=== PATIENT | female | born 1950 | race Caucasian/White ===

== ENCOUNTER 2021-09-14 11:03 | Emergency (ER) | payer OTHER ==
[2021-09-14 11:43] LABS: BASOPHIL 0.5 % (0-2); EOSINOPHIL 2.4 % (0-7); HCT 32.9 % (37.0-47.0); HGB 11.2 g/dl (12.5-16.0); MCH 30.9 pg (25.0-31.0); MCV 90.6 fL (78.0-100.0); MONOCYTE 5.7 % (0-12); MPV 10.1 fL (6.0-9.5); NEUTROPHIL 79.8 % (41-80); NRBC 0; PLT 140 K/uL (150-400); RBC 3.63 M/uL (4.20-5.40); RDW 12.7 % (11.5-14.0); WBC 6.3 K/uL (4.0-10.5)
[2021-09-14 12:23] LABS: CORONAVIRUS 2019 SARS-COV-2 NEGATIVE (NEGATIVE); INFLUENZA A NAA NEGATIVE (NEGATIVE)
[2021-09-14 12:40] LABS: BILIRUBIN - TOTAL 0.5 mg/dL (0.2-1.0); CREATININE 0.95 mg/dL (0.51-0.95); GLOBULIN (CALCULATION) 3.3 g/dL; POTASSIUM 3.3 mmol/L (3.5-5.1); TOTAL PROTEIN 7.3 g/dL (6.4-8.2)
[2021-09-14 12:56] LABS: BILIRUBIN NEGATIVE (NEGATIVE); BLOOD NEGATIVE Ery/uL (NEGATIVE); CLARITY CLEAR (CLEAR); COLOR YELLOW (YELLOW); GLUCOSE (U) TRACE mg/dL (NORMAL); LEUKOCYTES NEGATIVE Leu/uL (NEGATIVE); NITRITE NEGATIVE (NEGATIVE); PROTEIN NEGATIVE (NEGATIVE); UROBILINOGEN 0.2 mg/dL (0.2-1.0); pH 7.5 (5.0-9.0)
[2021-09-14] MEDS ORDERED: ATROVENT HFA12.9 GM INH (13:25)
[2021-09-14] MEDS ORDERED: MUCINEX1200 MG PO (13:25)
[2021-09-14] MEDS ORDERED: ONDANSETRON ODT4 MG PO (13:25)
[2021-09-14] MEDS ORDERED: ANTIVERT25 MG PO (13:25)
== END 2021-09-14 15:23 | disposition home or self-care (01) ==
LOC: FER 11:03
PROVIDERS: Internal Medicine
DX: J42 Unspecified chronic bronchitis (principal); R42 Dizziness and giddiness; E11.9 Type 2 diabetes mellitus without complications; F17.210 Nicotine dependence, cigarettes, uncomplicated; Z88.1 Allergy status to other antibiotic agents; Z79.84 Long term (current) use of oral hypoglycemic drugs; Z79.899 Other long term (current) drug therapy
CPT/HCPCS: 36415; 70450; 71045; 80053; 81003; 83880; 84145; 84484; 85025; 93005; J2405; U0002